=== PATIENT | female | born 1965 | race Caucasian/White ===

== ENCOUNTER 2016-10-10 23:59 | Emergency (ER) | payer OTHER ==
--- NOTE | ~2016-10-10 | EKG ---
PATIENT: DAE VANEGAS UNIT #: [id number] Ventricular Rate: 101 BPM Atrial Rate: 101 BPM P-R Interval: 166 ms QRS Duration: 134 ms Q-T Interval: 394 ms QTC Calculation(Bezet): 510 ms P [place]: 67 degrees Calculated R [place]: 28 degrees Calculated T [place]: 73 degrees Diagnosis Line: Sinus tachycardia Diagnosis Line: Left bundle branch block Diagnosis Line: Abnormal ECG Diagnosis Line: No previous ECGs available Diagnosis Line: Confirmed by LAURA RUBIO MD ([id number]) on Diagnosis Line: 11/19/2016 7:03:12 AM INTERPRETING MD: TIP
--- NOTE | ~2016-10-10 | CR63 ---
[facility] A Service of [facility] & [facility] RADIOLOGY TEXT RESULTS PATIENT: DAE VANEGAS LOCATION: SED : 69 UNIT #: [id number] AGE: [address]: CASSIDY BRISENO SEX: F ORDER DR: [id number] [address] [address] [id number] E MR#: [id number] Acc #: [id number] NAME: DAE VANEGAS : 1965 SEX: F STUDY DATE/TIME: 10/11/2016 0:14 UNIT: SED ROOM: STUDY DESCRIPTION: CR Chest 2 View Attending Physician: Cassidy Briseno Aprn Ordering Physician: Baljeet Siu M.D. Primary Care Physician: Vincent Lunsford M.D. MEDICAL IMAGING REPORT This report is preliminary unless electronic signature is present. EXAM PA lateral chest, date: 10/11/2016. HISTORY Cough, congestion, shortness breath and weakness. Began last , worse today. COMPARISON PA and lateral chest radiograph 09/21/2012. CT abdomen and pelvis and lung windows 04/07/2016. FINDINGS Airspace disease is present in the right lower lobe, favored to represent changes of pneumonia. Heart size is within normal limits. No pleural effusion or pneumothorax is seen. Degenerative spurring is present within the thoracic spine. IMPRESSION Right lower lobe airspace disease. Correlate clinically for pneumonia. Radiographic followup to document resolution is recommended. Dictated by... Jenny Avila M.D. THIS IS AN ELECTRONICALLY VERIFIED REPORT Jenny Avila M.D. at 10/11/2016 9:56 PM LLH/gz TD: 10/11/2016 10:56 JOB #: [id number] MEDICAL IMAGING REPORT
[~2016-10-10 23:59] MED LIST: ACETAMINOPHEN PO; ALBUTEROL17 GM INH; AMITRIPTYLINE H25 MG; AMOXICILLIN PO; BACTRIM DS TABL1 TA2 PO; BENADRYL25 MG PO; CAPOZIDE; CATAFLAM50 MG PO; DOXYCYCLINE HY100 M1 PO; EPIPEN0.3 MG/0.1 IM; EPIPEN0.3 MG/0.3 INJ; FLEXERIL10 MG PO; HYDROCHLOROTH12.5 M1; HYDROCORTISONE30 G2 TOP; IBUPROFEN PO; KEFLEX500 M1 PO; LORTAB 5/500 TA1 TA1 PO; MEDROL PO; MEDROL4 MG/DOSE- PO; MOBIC PO; NO MEDICATIONS; PHENERGAN DM1 ML PO; PHENERGAN W/CO120 ML PO; PHENERGAN25 M1 PO; POTASSIUM; PREDNISONE PO; ROBITUSSIN ALL118 ML PO; TAMIFLU75 M1 PO; TESSALON200 MG PO; TYLENOL #3 PO; ULTRAM PO; VOLTAREN75 MG PO; WATER PILL; WATER PILL PO; ZITHROMAX PO; ZOFRAN ODT4 MG PO
[2016-10-11 00:22] LABS: INFLUENZA A NEG (NEG); INFLUENZA B NEG (NEG)
[2016-11-06] MEDS ORDERED: NEURONTIN100 MG PO (21:20)
[2016-11-06] MEDS ORDERED: HYDROCHLOROTHIA25 MG PO (21:21)
[2016-11-06] MEDS ORDERED: ARTHRITIS PAIN650 M3 PO (21:21)
== END 2016-10-11 01:06 | disposition home or self-care (01) ==
LOC: SED 23:59
PROVIDERS: Nurse Practitioner Family
DX: J18.9 Pneumonia, unspecified organism (principal); Z90.49 Acquired absence of other specified parts of digestive tract
CPT/HCPCS: 71020; 87804; 93005; 94640; 99283

== ENCOUNTER 2016-11-06 21:57 | Emergency (ER) | payer OTHER ==
--- NOTE | ~2016-11-06 | CT52 ---
[facility] A Service of [facility] RADIOLOGY TEXT RESULTS PATIENT: DAE VANEGAS LOCATION: SED : 69 UNIT #: [id number] AGE: [address]: Bernice Nicholson SEX: F ORDER DR: [id number] [address] [address] [id number] E MR#: [id number] Acc #: [id number] NAME: DAE VANEGAS : 1965 SEX: F STUDY DATE/TIME: 11/06/2016 22:09 UNIT: SED ROOM: STUDY DESCRIPTION: CT Cervical Spine Wo Cont Attending Physician: Bernice Nicholson Pa-C Ordering Physician: Hudson Elam D.O. Primary Care Physician: Vincent Lunsford M.D. MEDICAL IMAGING REPORT This report is preliminary unless electronic signature is present. EXAM CT of the cervical spine without contrast. INDICATION Minus left arm pain from the neck down for 1 week. No known injury. TECHNIQUE CT of the cervical spine was performed without contrast. Coronal and sagittal reformatted images were obtained. This CT exam was performed with one or more of the following radiation dose reduction techniques: automatic exposure control, adjustment of mA and/or kV according to patient size, and iterative reconstruction. COMPARISON STUDIES Comparison with 04/07/2016. FINDINGS Vertebral body heights and alignment are maintained. There is stable multilevel degenerative disc space narrowing with stable prominent posterior disc osteophyte complex at C5-C6 causing mild canal narrowing. There is no evidence of any acute fracture. There is mild bilateral neural foraminal narrowing at C4-C5. There is mild to moderate foraminal narrowing on the right at C5-6 and moderate narrowing on the left at C5-6. These findings are stable. Surrounding soft tissue structures of the neck are unremarkable. IMPRESSION No acute cervical spine abnormality. Stable degenerative changes within the cervical spine. [facility] A Service [facility] RADIOLOGY TEXT RESULTS PATIENT: DAE VANEGAS LOCATION: SED : 69 UNIT #: [id number] AGE: [address]: Bernice Nicholson SEX: F ORDER DR: Dictated by... Ameya Escobar M.D. THIS IS AN ELECTRONICALLY VERIFIED REPORT Ameya Escobar M.D. at 11/09/2016 8:03 AM GUERRERO/obbby TD: 11/07/2016 07:10 JOB #: [id number] MEDICAL IMAGING REPORT Page 1 of 1
--- NOTE | ~2016-11-06 | CR229 ---
[facility]. [facility] A Service of [facility] RADIOLOGY TEXT RESULTS PATIENT: DAE VANEGAS LOCATION: SED : 69 UNIT #: [id number] AGE: [address]: Bernice Nicholson SEX: F ORDER DR: [id number] [address] [address] [id number] E MR#: [id number] Acc #: [id number] NAME: DAE VANEGAS : 1965 SEX: F STUDY DATE/TIME: 11/06/2016 22:01 UNIT: SED ROOM: STUDY DESCRIPTION: CR Shoulder Min 2 View Lt Attending Physician: Bernice Nicholson Pa-C Ordering Physician: Hudson Elam D.O. Primary Care Physician: Vincent Lunsford M.D. MEDICAL IMAGING REPORT This report is preliminary unless electronic signature is present. EXAM Left shoulder, 2 views. HISTORY Left arm pain for 1 week. No injury. FINDINGS 2 views of left shoulder demonstrate normal bone alignment. No fracture, joint space narrowing, or dislocation. Minimal hypertrophic changes at the acromioclavicular joint. IMPRESSION No acute finding. No fracture. Satisfactory bone alignment. Dictated by... Jarod Lopez M.D. THIS IS AN ELECTRONICALLY VERIFIED REPORT Jarod Lopez M.D. at 11/07/2016 11:21 PM DFL/meri TD: 11/07/2016 07:08 JOB #: [id number] MEDICAL IMAGING REPORT Page 1 of 1
[~2016-11-06 21:57] MED LIST changes: +ARTHRITIS PAIN650 M3 PO; +HYDROCHLOROTHIA25 MG PO; +NEURONTIN100 MG PO
[2016-11-06 22:19] LABS: POC - CKMB <1.0 ng/mL (0.0-7.9); POC - MYOGLOBIN 47.4 ng/mL (0.0-169.0); POC - TROPONIN <0.05 ng/mL (<=0.05)
== END 2016-11-06 23:31 | disposition home or self-care (01) ==
LOC: SED 21:57
PROVIDERS: Physician Assistant
DX: M54.12 Radiculopathy, cervical region (principal); Z90.49 Acquired absence of other specified parts of digestive tract
CPT/HCPCS: 72125; 73030; 82553; 83874; 84484; 96372; 99284; J1040

== ENCOUNTER 2017-03-14 16:48 | Emergency (ER) | payer OTHER ==
--- NOTE | ~2017-03-14 | CR63 ---
[facility]. [facility] A Service of [facility] & [facility] RADIOLOGY TEXT RESULTS PATIENT: DAE VANEGAS LOCATION: SED : 69 UNIT #: [id number] AGE: [address]: Kait Oswald MD SEX: F ORDER DR: [id number] [address] [address] [id number] E MR#: [id number] Acc #: [id number] NAME: DAE VANEGAS : 1965 SEX: F STUDY DATE/TIME: 03/14/2017 17:21 UNIT: SED ROOM: STUDY DESCRIPTION: CR Chest 2 View Attending Physician: Kait Oswald M.D. Ordering Physician: Kait Oswald M.D. Primary Care Physician: Vincent Lunsford M.D. MEDICAL IMAGING REPORT This report is preliminary unless electronic signature is present. EXAM 2-view chest INDICATION Cough. 3-day duration. Shortness of air. FINDINGS PA and lateral views of the chest compared to 10/11/2016. Heart and mediastinal contours are unchanged. There is borderline cardiomegaly. There is background COPD. No focal consolidation. No pleural effusion. IMPRESSION No acute cardiopulmonary findings or significant interval change. Dictated by... Sami Rico M.D. THIS IS AN ELECTRONICALLY VERIFIED REPORT Sami Rico M.D. at 03/16/2017 10:30 AM Nishant/gila TD: 03/15/2017 07:40 JOB #: [id number] MEDICAL IMAGING REPORT Page 1 of 1
[2017-03-14] MEDS ORDERED: NO MEDICATIONS (16:56)
== END 2017-03-14 18:17 | disposition home or self-care (01) ==
LOC: SED 16:48
DX: J06.9 Acute upper respiratory infection, unspecified (principal); Z87.01 Personal history of pneumonia (recurrent); Z90.49 Acquired absence of other specified parts of digestive tract
CPT/HCPCS: 71020; 84703; 99284